=== PATIENT | female | born 1965 | race Caucasian/White ===

== ENCOUNTER → 2017-02-28 | Outpatient (CLI) | payer BC | LOC: CARD 16:45 | DX: I10 Essential (primary) hypertension (principal); E03.9 Hypothyroidism, unspecified; E66.01 Morbid (severe) obesity due to excess calories; E56.9 Vitamin deficiency, unspecified; R53.83 Other fatigue ==

== ENCOUNTER 2017-09-14 16:50 | Emergency (ER) | payer BC ==
[~2017-09-14] VITALS: Ht 170.1 cm; Wt 147.0 kg
[2017-09-14 17:31] LABS: BASO # 0.1 10*3/uL (0.0-0.1); BASO % 0.4 % (0.0-1.0); EOS # 0.3 10*3/uL (0.0-0.4); EOS % 2.5 % (1.0-4.0); HEMATOCRIT 34.6 % (37.0-47.0); HEMOGLOBIN 11.3 g/dl (12.0-16.0); LYMPH # 2.4 10*3/uL (1.3-4.4); LYMPH % 19.9 % (27.0-41.0); MEAN CELL VOLUME 90.3 fl (81.0-99.0); MEAN CORPUSCULAR HGB 29.5 pg (27.0-31.0); MEAN CORPUSCULAR HGB CONC 32.7 g/dl (33.0-37.0); MEAN PLATELET VOLUME 10.4 fl (9.6-12.3); MONO # 0.5 10*3/uL (0.1-1.0); MONO % 4.1 % (3.0-9.0); NEUT # 8.6 10*3/uL (2.3-7.9); NEUT % 72.7 % (47.0-73.0); PLATELET COUNT AUTOMATED 226 10*3/uL (130-400); RED BLOOD COUNT 3.83 10*6/uL (4.10-5.10); RED CELL DISTRI WIDTH 13.3 % (0-14.5); WHITE BLOOD COUNT 11.8 10*3/uL (4.8-10.8)
[2017-09-14 17:48] LABS: BUN 21 mg/dl (7-24); CHLORIDE 104 mmol/L (98-107); CREATININE 0.96 mg/dL (0.55-1.02); POTASSIUM 4.1 mmol/L (3.5-5.1); SODIUM 140 mmol/L (136-145)
[2017-09-14 17:58] LABS: THYROID STIM HORMONE (HS) 0.532 uIU/ml (0.358-4.75)
== END 2017-09-14 18:24 | disposition home or self-care (01) ==
LOC: ED 16:50
PROVIDERS: Emergency Medicine
DX: E66.01 Morbid (severe) obesity due to excess calories (principal); R05 Cough; Z68.43 Body mass index [BMI] 50.0-59.9, adult; Z88.1 Allergy status to other antibiotic agents

== ENCOUNTER → 2019-06-16 | Outpatient (CLI) | payer BC | END | disposition home or self-care (01) | LOC: RAD 13:30 | DX: Z01.818 Encounter for other preprocedural examination (principal); Z78.0 Asymptomatic menopausal state ==

== ENCOUNTER → 2019-07-13 | Outpatient (CLI) | payer BC ==
--- NOTE | ~2019-07-13 | EKG ---
[place] ELECTROCARDIOGRAM REPORT NAME: JEFF KEITH UNIT #: [id number] ROOM: DOCTOR: REJI DRAFT REPORT BIRTHDATE: [birth year] [place] Test Date: 2019-07-13 Test Time: 16:49:33 Pat Name: JEFF KEITH Department: Room: Gender: [employer]: : 1965 Requested By: MATIAS ACKERMAN Order Number: [id number] Reading MD: Jose Tavares Measurements Intervals [place] Rate: 90 P: 55 [place]: 203 QRS: 7 QRSD: 100 T: 48 QT: 354 QTc: 433 Interpretive Statements Sinus rhythm Borderline prolonged [place] interval RSR' in V1 or V2, right VCD or RVH No previous ECG available for comparison Electronically Signed On 07-14-2019 9:40:18 PST by Jose Tavares CM:EKGRPT:ELECTROCARDIOGRAM REPORT [id number] MATIAS MENDOZA DRAFT REPORT MATIAS ACKERMAN
== END | disposition home or self-care (01) ==
LOC: CARD 16:35
DX: Z01.818 Encounter for other preprocedural examination (principal)

== ENCOUNTER 2021-01-24 21:45 | Emergency (ER) | payer SELFPAY ==
[~2021-01-24] VITALS: Ht 170.1 cm; Wt 154.2 kg
[2021-01-24 23:54] LABS: BASO # 0.1 10*3/uL (0.0-0.1); BASO % 0.8 % (0.0-1.0); EOS # 0.3 10*3/uL (0.0-0.4); EOS % 3.8 % (1.0-4.0); HEMATOCRIT 38.1 % (37.0-47.0); LYMPH % 24.1 % (27.0-41.0); MEAN CELL VOLUME 92.5 fl (81.0-99.0); MEAN CORPUSCULAR HGB 30.1 pg (27.0-31.0); MEAN CORPUSCULAR HGB CONC 32.5 g/dl (33.0-37.0); MEAN PLATELET VOLUME 10.9 fl (9.6-12.3); MONO # 0.4 10*3/uL (0.1-1.0); NEUT # 5.5 10*3/uL (2.3-7.9); NEUT % 65.9 % (47.0-73.0); PLATELET COUNT AUTOMATED 213 10*3/uL (130-400); RED BLOOD COUNT 4.12 10*6/uL (4.10-5.10); RED CELL DISTRI WIDTH 13.1 % (0-14.5); WHITE BLOOD COUNT 8.4 10*3/uL (4.8-10.8)
[2021-01-25 00:09] LABS: ALBUMIN 3.8 gm/dl (3.1-4.5); ALKALINE PHOSPHATASE 113 U/L (45-117); BUN 18 mg/dl (7-24); CHLORIDE 107 mmol/L (98-107); CREATININE 1.11 mg/dL (0.55-1.02); POTASSIUM 4.2 mmol/L (3.5-5.1); SGOT/AST 15 IU/L (3-35); SGPT/ALT 27 U/L (12-78); SODIUM 140 mmol/L (136-145); TOTAL PROTEIN 7.9 gm/dL (6.4-8.2)
== END 2021-01-25 01:50 | disposition home or self-care (01) ==
LOC: ED 21:45
PROVIDERS: Emergency Medicine
DX: E03.9 Hypothyroidism, unspecified (principal); Z88.8 Allergy status to other drugs, medicaments and biological substances

== ENCOUNTER 2025-05-23 19:00 | Emergency (ER) | payer OTHER ==
[~2025-05-23] VITALS: Ht 170.1 cm; Wt 159.7 kg
[2025-05-23 22:11] LABS: MEAN CELL VOLUME 90.7 fl (81.0-99.0); MEAN CORPUSCULAR HGB 28.9 pg (27.0-31.0); MEAN PLATELET VOLUME 10.9 fl (9.6-12.3); NUCLEATED RED BLOOD CELL 0.0 % (0.0-0.0); NUCLEATED RED BLOOD CELL 0.0 10*3/uL (0.0-0.0); PLATELET COUNT AUTOMATED 195 10*3/uL (130-400); RED CELL DISTRI WIDTH 14.3 % (0-14.5)
[2025-05-23 22:13] LABS: MANUAL DIFF REFLEX YES
[2025-05-23 22:40] LABS: PLATELET SUFFICIENCY NORMAL (NORMAL)
[2025-05-23 22:48] LABS: BUN 14 mg/dl (9-23)
[2025-05-24] MEDS ORDERED: PREDNISONE20 M1 PO (00:02)
[2025-05-24] MEDS ORDERED: ZITHROMAX250 MG PO (00:02)
== END 2025-05-23 20:27 | disposition left against medical advice (07) ==
LOC: ED 19:00
PROVIDERS: Internal Medicine
DX: B34.9 Viral infection, unspecified (principal); D72.829 Elevated white blood cell count, unspecified; R79.82 Elevated C-reactive protein (CRP); Z88.1 Allergy status to other antibiotic agents; Z20.822 Contact with and (suspected) exposure to COVID-19